=== PATIENT | male | born 1975 | race Two or more races ===

== ENCOUNTER 2025-01-26 18:16 | Emergency (ER) | payer SELFPAY ==
[~2025-01-26] VITALS: Ht 185.4 cm; Wt 99.5 kg
[2025-01-26 18:51] VITALS: BP 138/79; PULSE 115; RESP 18; TEMP 98; O2SAT 98
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
== END 2025-01-26 19:01 | disposition home or self-care (01) ==
LOC: ER 18:16
DX: S31.010D Laceration without foreign body of lower back and pelvis without penetration into retroperitoneum, subsequent encounter (principal); X58.XXXD Exposure to other specified factors, subsequent encounter